=== PATIENT | female | born 1960 | race Caucasian/White ===

== ENCOUNTER 2020-10-18 05:10 | Day surgery (SDC) | payer OTHER, SELFPAY ==
--- NOTE | 2020-10-02 08:55 | HP.PCM_ITS ---
History and Physical History and Physical [facility] Patient Name: Gay Damon : 1960 From: NEERU DUPONT PA-C DATE OF SURGERY: 10/18/2020 SCHEDULED PROCEDURE: right knee arthroscopy with partial medial meniscectomy and possible lateral meniscectomy and chondroplasty HISTORY OF PRESENT ILLNESS: With her right knee. Patient was initially seen back in October 2019 in which she had pain with her knee giving out while going up and down stairs. Patient heard a pop with pain and fell onto the right knee. She had an MRI of the right knee. Patient has continued to have ongoing pain with the knee. Pain is increased with going up and down stairs, walking, sitting, twisting. And did have some relief of her pain. Patient has continued to have medial joint line pain. The pain can reach 5/10 with activities. Patient has a medical history pertinent for previous heart attack and heart stent. We have obtained surgical clearance from the frame trimmer. Instructed to stop aspirin and brilinta 5 days before surgery. Patient currently denies any chest pain, shortness of breath, fevers chills, or recent infections. After failing conservative measures and discussing treatment options with Dr. Blaine Gusman, the patient does wish to proceed with a right knee arthroscopy with partial medial meniscectomy and possible lateral meniscectomy with chondroplasty. REVIEW OF SYSTEMS: ROS: Const: Reports change in appetite and weight change, but denies fever. CV: Denies chest pain, heart murmur and irregular heartbeat. Resp: Denies cough, pneumonia, shortness of breath, tuberculosis and wheezing. GI: Denies constipation, diarrhea, heartburn, nausea, rectal itching, bloody stools and vomiting. : Denies incontinence. Musculo: Denies leg swelling, pain, trouble walking and weakness. Skin: Reports tattoo, but denies Raynaud's and history of shingles. Neuro: Denies ambulatory dysfunction, dizziness, numbness/tingling and tremor. Psych: Denies anxiety, insomnia and stress. Cristiano/Lymph: Reports bleeding/bruising tendency, but denies anemia and past transfusion. Reviewed, no changes. PAST MEDICAL HISTORY: Advance Care Plan: No Advance Directives Effective Date: 11/05/2019 PMH: Medical Problems: Heart Attack Diabetes - BORDERLINE Low Blood Pressure And Heart Rate Accidents: RT Knee Injury - (10/27/2019) FALL Surgical Hx: Heart Stent - (2018) DR. LINK @ [facility] RT Shoulder Arthroscopy - (1999) Dr. Jamil - [place] Anesthesia Complications: None Assistive Devices: Contacts, Glasses Reviewed and updated. 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 Personal Habits: Cigarette Use: Never Smoked Cigarettes.Smokeless Tobacco: Never Used Smokeless Tobacco.E-Cigarette Use: Never used.Alcohol: Occasionally.Drug Use: Denies Use.Enjoy Exercising: Exercises 1-3 x/month. Reviewed and updated. VITALS: Ht: 63.5 Wt: 233lb Wt k.689 BMI: 40.6 BP: 118/82 Pulse: 57 Resp: 16 T: 94.9 T: 34.9C Pain Level: 6 ALLERGIES: Adhesives MEDICATIONS: Ultram 50 mg 1-2 by mouth q6 hour as needed pain, Lisinopril 20 mg 1 by mouth every day, Metoprolol Succinate ER 50 mg 2po qd, Brilinta 90 mg twice a day, by mouth, Furosemide 40 mg 1 by mouth every day, Atorvastatin Calcium 80 mg 1 by mouth every day, Aspirin Low Dose 81 mg 1po qd, Nitroglycerin 0.4 mg taken as needed for angina, Vitamin D (Ergocalciferol) 1.25 MG (22221 Ut) every friday am, Isosorbide Mononitrate ER 30 mg 1po qday PRE-OP EXAM: General appearance:NORMAL Other: Eyes: Conjunctivae and lids: NORMAL Pupils: ERR Ears, Nose, Mouth, and Throat: NORMAL Other: Inspection of lips, teeth and gums: NORMAL Other: Neck: Examination of neck: no masses noted. Respiratory: Assessment of respiratory effort: NORMAL Other: Auscultation of lungs: clear to auscultation no wheezes, rhonchi or rales. Cardiovascular: Auscultation of heart: regular rate and rhythm, no murmurs, gallops or rubs. Exam of carotid arteries: NORMAL Other: Gastrointestinal: Exam of abdomen: soft, nontender, nondistended bowel sounds present. PHYSICAL EXAMINATION: Patient currently walks with an antalgic gait. The right knee is cool to touch without erythema or signs of infection. Patient continues to have wrist palpation along the medial joint line. Range of motion: 0 of extension to 117 flexion with increased pain. Pain is reproduced with Richard's testing, negative anterior/posterior drawer, negative Deanna's, negative patellar apprehension. Sensation intact to light touch. IMAGING STUDIES: MRI of the right knee reveals significant medial patellofemoral chondromalacia with acute medial meniscus tearing. 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 Right knee medial meniscus tear with osteoarthritis 2. Previous heart attack with heart stents PLAN: Dr. Blaine Gusman did discuss and review with the patient all treatment options including surgical versus nonsurgical options. Patient does wish to proceed with the above-stated procedure. Potential risks, benefits, and complications of the procedure were discussed in detail including but not limited to , infection, nerve and blood vessel damage, persistent pain, numbness, tingling, paresthesias, blood clot, pulmonary embolism, and requirement for possible further surgery. The patient expressed full understanding and has no further questions for the doctor. Patient does agree to proceed with the above-stated procedure and has signed the surgery consent form. We discussed the current risks associated with COVID 19. This does include the risk of exposure while in the hospital. Patient was reassured local hospitals have low infection rates and are taking all necessary precautions to avoid exposure to patients. In addition, we discussed strategies that can be used to help limit exposure including those that limit the patient's time in the hospital. Also using strategies to limit the patient's need for continued inpatient services after being discharged from the hospital. Patient was notified that we will need to comply with any screening or testing the hospital wishes to perform or that surgery may be delayed for any positive results. This dictation was created using voice recognition software. Phonetic and/or grammatical errors may exist. ___ I have re-examined the patient. There are no clinical changes since date of exam. ___ See progress notes for changes. ___ Dictated on admission Date: Time: Signature:
[2020-10-18] VITALS (9 sets, daily range): BP systolic 92–102; BP diastolic 55–71; PULSE 49–72; RESP 14–16; TEMP 36.1–37.3; O2SAT 93–100; BMI 40.9
[2020-10-18] MEDS: Lactated Ringers 1,000 ML 100 ML IV (06:27)
[2020-10-18 06:35] LABS: Bedside Glucose 98 mg/dL (70-110)
[2020-10-18] MEDS: Cefazolin 2 GM in 0.9% Normal Saline 100 ML IV (07:08)
--- NOTE | 2020-10-18 07:58 | OP.PCM_ITS ---
Report of Operation Date of Procedure: 10/18/20 Pre-Operative Diagnosis: 1. Right knee patellofemoral chondromalacia. 2. Right knee medial meniscus tear posterior horn root tear. 3. Right knee lateral discoid meniscus Post-Operative Diagnosis: 1. Right knee patellofemoral and medial compartment chondromalacia. 2. Right knee medial meniscus tear posterior horn root tear Surgery/Procedure Performed:: Right knee arthroscopic. 1. Medial compartment and patellofemoral compartment chondroplasty. 2. Partial medial meniscectomy Description of Surgical Findings:: No lateral discoid meniscus was appreciated animal care giver: None Type of Anesthesia:: General Anesthesiologist: [place] Special Medications: Ancef Estimated Blood Loss (mL): 10 Fluids Replaced: 900 mL crystalloid Description of Procedure: On the date of the procedure, the patient's R lower extremity was marked in the preoperative area. Patient was brought back to the operating room where they were transferred to the bed. Anesthesia assumed control of the C-spine airway and administered anesthetic. All bony prominences were identified and well- padded and the R leg was placed in the arthroscopic leg neves. The contralateral leg was then draped over the bed and well-padded. There was padding underneath both sciatic nerves. The foot of the bed was then dropped and the R leg was prepped in a sterile fashion. The surgeon then scrubbed. Upon reentering the room, the operative leg was draped in a standard orthopedic fashion. A timeout was called, everyone agreed upon the side, the site, the procedure to be performed, patient's identity and antibiotics given. Incisions were marked out for the medial and lateral infrapatellar portals. Esmarch bandage was then used to exsanguinate the leg and tourniquet was placed at 250 mmHg. At this time, the lateral portal incision was made in a vertical fashion. The trocar was placed into the joint. The camera was then placed and the patellofemoral joint was visualized. The patella did appear to have grade 3 chondral changes. The trochlea appeared to have areas of grade 4 especially centrally chondral changes. We then directed our attention to the medial gutter where there was no foreign body. Then directed our attention to the medial joint compartment. There were grade 3 chondral changes on the medial distal femur with surrounding chondral flaps, grade 2 chondral changes on the medial tibial plateau. The medial meniscus had a large posterior horn root tear. The medial portal was then placed under direct visualization using a spinal needle an 11 blade scalpel. Once this was done a probe was placed in the joint and the meniscus was probed finding large posterior horn root tear. The shaver was placed in the joint debriding the chondral flaps around the edge and the loose chondral fragments performing a chondroplasty of the medial compartment the biters and gisele were then used sequentially to debriding get rid of any free edges that could be a source of pain and catching in the meniscus tear. Once we felt medial meniscus tear was adequately debrided, we again visualized the joint and noted the meniscus tear was adequately debrided. Attention was then turned towards the notch where the anterior cruciate ligament was intact. PCL was visualized and appeared intact. Attention was then directed towards the lateral compartment where the lateral distal femur had minimal chondral changes, the lateral proximal tibia had minimal chondral changes. The lateral meniscus had no tears, there was also no evidence of significant discoid meniscus requiring further treatment. We then directed our attention to the lateral gutter, which was visualized and no free bodies were noted. Attention was then directed towards patellofemoral joint where we further explored the chondral defects. Surrounding chondral flaps were debrided using the shaver performing the patellofemoral chondroplasty. At this time the wound was copiously irrigated out with normal saline with epinephrine. The wound was closed with 4-0 nylon and 0.5% Marcaine and epinephrine were injected for local anesthetic. Xeroform was placed over the incision. Sterile dressing was placed. Compressive dressing was placed. Tourniquet was let down. For that there was then placed up. Patient was awakened by anesthesia patient was transferred to the PACU for recovery in stable condition. Postoperative plan: Patient will be made weight-bear as tolerated. Return to activities as tolerated. He will come to the office in 2 weeks for postoperative wound check and suture removal. If he is doing well that time he can follow-up as needed. - Complications No intraoperative complications - Admit VTE Documentation VTE Present on Admission: No VTE Mechan Device Prophylaxis: SCD's, Thigh High REJI Hose VTE Pharm Prophylaxis ordered?: Yes
[2020-10-18] MEDS: Epinephrine (1 mg/ml) 1 MG/ML VIAL (08:00)
[2020-10-18] MEDS: Ketorolac 15 MG/ML Vial IV (08:22)
[2020-10-18 08:25] LABS: Bedside Glucose 110 mg/dL (70-110)
== END 2020-10-18 11:08 | disposition home or self-care (01) ==
LOC: SDC 05:13 → AC 05:13
PROVIDERS: PCP Family Medicine; Referring Provider Specialist; Visit Provider Specialist
PROC: (CPT 29870; principal; 2020-10-18 07:10)
DX: S83.241A Other tear of medial meniscus, current injury, right knee, initial encounter (principal); M22.41 Chondromalacia patellae, right knee; M17.11 Unilateral primary osteoarthritis, right knee; W10.9XXA Fall (on) (from) unspecified stairs and steps, initial encounter; Y93.9 Activity, unspecified; Y92.9 Unspecified place or not applicable; Y99.9 Unspecified external cause status; Z20.828 Contact with and (suspected) exposure to other viral communicable diseases; R73.03 Prediabetes; E78.00 Pure hypercholesterolemia, unspecified; Z79.82 Long term (current) use of aspirin; Z79.899 Other long term (current) drug therapy; Z78.0 Asymptomatic menopausal state; I25.2 Old myocardial infarction; Z95.5 Presence of coronary angioplasty implant and graft
CPT/HCPCS: 01400; 29881; 64447; 82962; 87426; C9803; J7120; J2405